=== PATIENT | female | born 2000 | race Caucasian/White ===

== ENCOUNTER 2025-01-16 07:05 | Outpatient (CLI) | payer OTHER, SELFPAY ==
[2025-01-16 08:15] LABS: Cholesterol 175 mg/dL (0-200); HDL Cholesterol 65 mg/dL (60-100); Triglycerides 59 mg/dL (0-150)
== END 2025-01-16 07:06 | disposition home or self-care (01) ==
PROVIDERS: PCP Family Medicine; Visit Provider Dermatology
DX: L93.0 Discoid lupus erythematosus (principal)
CPT/HCPCS: 36415; 80061